=== PATIENT | male | born 1975 | race Caucasian/White ===

== ENCOUNTER 2016-08-04 19:22 | Emergency (ER) | payer OTHER ==
[~2016-08-04] VITALS: Ht 177.8 cm; Wt 73.6 kg
[2016-08-04 19:31] VITALS: BP 115/79; PULSE 110; RESP 20; O2SAT 100
[2016-08-04 19:54] LABS: BASOPHILS % (AUTO) 0.3 % (0-3); EOSINOPHILS % (AUTO) 0.9 % (0-5); MONOCYTES % (AUTO) 8.7 % (4-12); Mean Corpuscular Hemoglobin 28.8 pg (27.0-35.0); Mean Corpuscular Volume 86.7 fL (81-100); NEUTROPHILS % (AUTO) 61.3 % (40-74); Platelet Count 196 bil/L (150-400)
[2016-08-04 20:16] LABS: Magnesium 2.3 mg/dL (1.6-2.6)
--- NOTE | 2016-08-04 21:15 | ED.REPORT ---
HPI-Abd Pain M Under 41 Date of Service Aug 04, 2016 ED Provider: Clarita Nathan DO Patient is a 40 year old male who presents to the ED complaining of vomiting and diarrhea that began suddenly at noon yesterday. 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 He had to borrow bathrooms while on his route. He has had >10 episodes of vomit and >10 episodes of diarrhea. He states that the vomit was pink and brown, not undigested food. The last full meal was the evening before that, chicken nuggets and tator tots. He has been unable to keep anything down since that meal. Patient reports associated cramping periumbilical abdominal pain after he tries to eat anything. Patient denies a fever or chills. Nursing Notes Stated Complaint: POSS FOOD POISONING Chief Complaint: Male Abdominal Pain Nursing Notes Reviewed: Yes Allergies: Coded Allergies: No Known Allergies (Verified Allergy, Unknown, 08/04/16) No Active Prescriptions or Reported Meds General Time Seen by MD: 21:15 Chief Complaint Diarrhea moderate, Vomiting moderate Hx Obtained From: Patient Arrived By: Walk-in Onset Occurred: Yesterday Symptom Duration: Waxes and wanes Location: : Periumbilical Quality: Cramping Severity: Current: No pain currently Severity: Maximum: Moderate Recent Healthcare: No recent doctor visit, No recent hospitalization Similar Sx Previous: No Past Medical History Past Medical History none reported Past Surgical History right hand Smoking History Current Every Day Smoker Social History Alcohol Use: "Social" Other Social History: Local resident Ambulatory Status Independent Review of Systems Constitutional: Denies: Chills, Fever Respiratory: Denies: Non-productive cough, Shortness of breath Cardiovascular: Denies: Chest pain, Palpitations GI: Reports: Abdominal pain, Diarrhea, Nausea, Vomiting Complete sys rev & neg: except as marked. Physical Exam Initial Vital Signs Vital Signs (First) Date Time Temp Pulse Resp B/P Pulse Ox O2 Delivery O2 Flow Rate FiO2 08/04/16 19:31 36.6 110 20 115/79 100 Room Air Initial VS: Reviewed Head / Eyes: Atraumatic, Normocephalic, PERRL ENT: Mucous membranes moist, Conjunctiva normal, No scleral icterus Neck: Supple, Full range of motion Extremities: Vascular intact, Neuro intact Skin: Warm, Dry, No cyanosis Neurologic: Alert, Oriented, Nonfocal Psychiatric: Mood/affect normal, Behavior normal, Normal thought content General/Constitutional: Awake, Alert, No acute distress Respiratory / Chest: Breath sounds NL, Breath sounds = bilat, No respiratory distress, No rales, No rhonchi, No wheezing Cardiovascular: Heart rate NL, Regular rhythm, Heart sounds NL, No murmurs Abdomen: Soft, Non-tender, No guarding, No rebound Back: Painless range of motion Interpretation & Diagnostics Lab Results Interpretation Result Diagram: 08/04/16194408/04/161944 Test 08/04/16 19:45 08/04/16 21:41 White Blood Count 7.0th/mm3 (3.8-10.1) Red Blood Count 4.82mil/mm3 (4.40-5.80) Hemoglobin 13.9g/dL (13.8-17.2) Hematocrit 41.8% (41.0-50.0) Mean Corpuscular Volume 86.7fL (81-100) Mean Corpuscular Hemoglobin 28.8pg (27.0-35.0) Mean Corpuscular Hemoglobin Concent 33.3% (32.0-37.0) Red Cell Distribution Width 13.5% (12.3-15.4) Platelet Count 196bil/L (150-400) Neutrophils (%) (Auto) 61.3% (40-74) Lymphocytes (%) (Auto) 28.7% (14-46) Monocytes (%) (Auto) 8.7% (4-12) Eosinophils (%) (Auto) 0.9% (0-5) Basophils (%) (Auto) 0.3% (0-3) Sodium Level 140mEq/L (134-144) Potassium Level 3.8mEq/L (3.5-5.2) Chloride Level 102mEq/L (97-108) Carbon Dioxide Level 23mmol/L (18-29) Blood Urea Nitrogen 21mg/dL (6-20) Creatinine 0.88mg/dL (0.76-1.27) Estimat Glomerular Filtration Rate 102mL/min (>59) Glucose Level 88mg/dL (60-99) Calcium Level 8.9mg/dL (8.5-10.1) Magnesium Level 2.3mg/dL (1.6-2.6) Total Bilirubin 0.5mg/dL (0.0-1.2) Aspartate Amino Transf (AST/SGOT) 28U/L (0-50) Alanine Aminotransferase (ALT/SGPT) 17U/L (0-44) Alkaline Phosphatase 57U/L (25-150) Total Protein 6.8g/dL (6.4-8.4) Albumin 4.2g/dL (3.4-5.0) Lipase 24U/L (13-60) Hold Ruth Top Tube Received (Received) Hold Urine Received (Received) Re-Eval/Medical Decision Source of Hx: Old records Re-Evaluation/Progress : Time of Eval: 00:32 )( Re-Eval Abdomen: Soft, Non-tender Patient Status: Condition improved Re-Evaluation/Progress Note: Rechecked the patient. He feels much improved and is ready to be discharged home. He was unable to produce a stool sample. No acute problem was identified on labs. Patient understands and agrees with the plan to be discharged home. Discharge instructions and follow-up discussed. All questions were addressed. Return to the ED warnings given. Counseled Regarding: Diagnosis, Lab results, Need for follow-up, When/why to return to ED Patient Discharge & Departure Primary Impression: Vomiting Vomiting type: unspecified Vomiting Intractability: non-intractable Nausea presence: with nausea Qualified Code: R11.2 - Nausea with vomiting, unspecified Additional Impression: Diarrhea Disposition: Home Discharge Condition All VS Reviewed: Yes Condition: Stable Patient Instructions: Acute Diarrhea (ED), Acute Nausea and Vomiting (ED) Additional Instructions: Clear liquid diet for the next 24 hours You should stay home from work on Wednesday (August 05) Take 1 Zofran every 8 hours as needed for nausea. Take 1 Chelsea every 8 hours for crampy pain. Do not drink alcohol, take sedating medications, drive, or take acetaminophen while on this medication. Follow-up with your doctor in the next 1-2 days, call tomorrow to schedule an appointment. Return to the Emergency Department if your have blood in your vomit, worsening abdominal pain, fever, or any other concerning symptoms. Referrals: [facility] Scribe Attestation Portions of this note were transcribed by Mela Lara. I, Dr. Otto personally performed the history, physical exam and medical decision-making; I reviewed and confirmed the accuracy of the information in the transcribed note. Signed by: Pierre Lopez, 08/05/2016 0059 Jac Otto DO Aug 04, 2016 21:15 Mela Lara Aug 04, 2016 21:34
[2016-08-04] MEDS ORDERED: Ondansetron 2 mg/mL 2 mL Inj IVPUSH PRN (21:25)
[2016-08-04] MEDS: 0.9% Sodium Chloride 1,000 ML IV SCH ×2 (21:44→22:15)
[2016-08-04 23:29] VITALS: BP 107/59; PULSE 86; RESP 20; O2SAT 100
[2016-08-05] MEDS ORDERED: _HYDROcodone/APAP 5-325 mg Tablet PO PRN (00:35)
[2016-08-05] MEDS ORDERED: _Ondansetron ODT 4 mg Tablet PO PRN (00:35)
[2016-08-05 01:37] VITALS: BP 102/55; PULSE 74; RESP 20; O2SAT 96
== END 2016-08-05 01:37 | disposition home or self-care (01) ==
LOC: SED 19:22
DX: R11.2 Nausea with vomiting, unspecified (principal); R19.7 Diarrhea, unspecified; R10.33 Periumbilical pain; F17.200 Nicotine dependence, unspecified, uncomplicated
CPT/HCPCS: 36415; 80053; 83690; 83735; 85025; 96374; 96375; 99284; J2405; J7030